=== PATIENT | male | born 2000 ===

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

== ENCOUNTER 2020-06-12 18:33 | Emergency (ER) | payer OTHER, BC ==
[~2020-06-12] VITALS: Ht 182.9 cm; Wt 95.6 kg
--- NOTE | 2020-06-12 18:39 | NUR ---
NO ANSWER WHEN CALLED FOR TRIAGE @ [id number].
--- NOTE | 2020-06-12 19:10 | NUR ---
PT BACK TO THIS RNS ROOM, RESTING ON GUOLY, NAD, APPEARS COMFORTABLE, PLACED ON SPO2/BP/ECG MONITORING AT THIS ITME. VSS. PT REPORTS GOING TO [facility] DUE TO BEING DIAGNOSED WITH COVID ON 06/03 BUT STILL HAVING SOB,COUGH AND DIARRHEA. PT ALSO REPORTS EXTREME FATIGUE. STATES HE HAS A HX OF ASTHMA. 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 PT BED IN [facility], RAILS ENGAGED, CALL LIGHT ON LAP, TM.
--- NOTE | 2020-06-12 20:20 | NUR ---
pt resting on gurney, nad, appears comfortable, no change in condition, waiting for rad read. bed in lowest, rails engaged, call light on lap. wctm.
--- NOTE | 2020-06-12 22:02 | NUR ---
PT UPDATED ON POC, CHART UP FOR RECHECK, PROVIDED WATER FOR COMFORT, NAD, APPEARS COMFORTABLE, VSS, WCTM. WAITING FOR ERP RECHECK
[2020-06-12 22:18] VITALS: BP 118/82
--- NOTE | 2020-06-12 22:18 | NUR ---
Patient given discharge instructions and they have confirmed that they understand the instructions. Patient ambulatory with steady gait. NAD, DENIES ADDITIONAL QUESTIONS OR NEEDS, VSS, NO PERSONAL BELONGINGS LEFT IN ROOM AFTER DC.
== END 2020-06-12 22:44 | disposition home or self-care (01) ==
LOC: ED 22:38
DX: U07.1 COVID-19 (principal); B34.9 Viral infection, unspecified
CPT/HCPCS: 71045; 93005; 99285